=== PATIENT | male | born 1990 | race Caucasian/White ===

== ENCOUNTER 2017-01-16 14:17 | Emergency (ER) | payer OTHER ==
[2017-01-16 14:42] VITALS: BP 110/72; PULSE 116; RESP 18; TEMP 102.1; O2SAT 99
--- NOTE | 2017-01-16 15:34 | C.PDOC ---
History Of Present Illness 26 y/o male presents to the ED with complaints of throat pain since yesterday and back pain x2 days. 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 Pt took motrin and applied lidocaine patch with some relief. Pt tolerating all PO. Denies fever, SOB, ear pain, cough, weakness, numbness or any other complaints. Time Seen by Provider: 01/16/17 14:44 Chief Complaint (Nursing): Back Pain History Per: Patient History/Exam Limitations: no limitations Onset/Duration Of Symptoms: Days Current Symptoms Are (Timing): Still Present Quality Of Discomfort: "Pain" Severity: Moderate Previous Symptoms: None Recent travel outside of the [place]: No Past Medical History Reviewed: Historical Data, Nursing Documentation, Vital Signs Vital Signs: Last Vital Signs Temp 102.1 F H 01/16/17 14:39 Pulse 116 H 01/16/17 14:39 Resp 18 01/16/17 14:39 BP 110/72 01/16/17 14:39 Pulse Ox 99 01/16/17 15:38 Family History: States: Unknown Family Hx - Social History Hx Alcohol Use: No Hx Substance Use: No Review Of Systems Except As Marked, All Systems Reviewed And Found Negative. Constitutional: Negative for: Fever, Chills ENT: Positive for: Throat Pain. Negative for: Ear Pain Respiratory: Negative for: Cough, Shortness of Breath Musculoskeletal: Positive for: Back Pain Neurological: Negative for: Weakness, Numbness Physical Exam - Physical Exam Appears: Non-toxic, No Acute Distress Skin: Warm, Dry, No Rash Head: Atraumatic, Normacephalic Ear(s): Bilateral: TM Obscured By Wax Nose: Normal Oral Mucosa: Moist Throat: Erythema, Exudate (bilateral), Other (uvula midline) Neck: Normal, Normal ROM, Supple Chest: Symmetrical Cardiovascular: Rhythm Regular, No Murmur Respiratory: Normal Breath Sounds, No Rales, No Rhonchi, No Wheezing Back: Other (diffuse back tenderness) Extremity: Normal ROM Extremity: Bilateral: Atraumatic Neurological/Psych: Oriented x3, Normal Speech, Normal Motor, Normal Sensation ED Course And Treatment O2 Sat by Pulse Oximetry: 99 (room air) Pulse Ox Interpretation: Normal Disposition - Disposition Referrals: [facility] [Outside] at [facility] [Outside] Disposition: HOME/ ROUTINE Disposition Time: 15:00 Condition: GOOD Additional Instructions: Thank you for letting us take care of you today. Your provider was Dr. Mendoza. You were treated for tonsillitis. The emergency medical care you received today was directed at your acute symptoms. If you were prescribed any medication, please fill it and take as directed. It may take several days for your symptoms to resolve. Return to the Emergency Department if your symptoms worsen, do not improve, or if you have any other problems. Please contact your doctor or call one of the physicians/clinics you have been referred to that are listed on the Patient Visit Information form that is included in your discharge packet. Bring any paperwork you were given at discharge with you along with any medications you are taking to your follow up visit. Our treatment cannot replace ongoing medical care by a primary care provider (PCP) outside of the emergency department. Thank you for allowing the [facility] team to be part of your care today. Follow up with your doctor or the clinic in 4-5 days for re-evaluation. Prescriptions: Amoxicillin [Amoxil 500 mg Cap] 500 mg PO Q8 #21 cap Instructions: Tonsillitis (ED) Forms: Work Excuse - Clinical Impression Clinical Impression: Tonsillitis - Scribe Statement The provider has reviewed the documentation as recorded by the Jacob Ramírez Provider Attestation: All medical record entries made by the Jacob were at my direction and personally dictated by me. I have reviewed the chart and agree that the record accurately reflects my personal performance of the history, physical exam, medical decision making, and the department course for this patient. I have also personally directed, reviewed, and agree with the discharge instructions and disposition.
== END 2017-01-16 15:09 | disposition home or self-care (01) ==
LOC: C.ER 14:17
DX: J03.90 Acute tonsillitis, unspecified (principal)